=== PATIENT | male | born 1990 | race Two or more races ===

== ENCOUNTER 2016-11-08 09:54 | Emergency (ER) | payer MEDICAID ==
[2016-11-08 10:01] VITALS: TEMP 98.6
--- NOTE | 2016-11-08 10:38 | EDPHY ---
H & P Stated Complaint: Jaw inj 2010;recurrent abcess?also vision bothering him for weeks Time Seen by Provider: 11/08/16 10:08 HPI/ROS: CHIEF COMPLAINT: Drainage in tenderness submental region HISTORY OF PRESENT ILLNESS: 26-year-old immunocompetent homeless male moved from [place] 2 days ago to [place], complaining of progressive and continued drainage, fluctuance in the submental region for the past several months. He has a history of multiple facial, mandible fracture in 2011 with ORIF. He states that he has had limited evaluation and follow up in [place] due to his homeless status. He denies: Intraoral lesions, change in voice, nuchal rigidity, chest pain, dyspnea, fever, chills, nausea, vomiting. PRIMARY CARE PROVIDER:none REVIEW OF SYSTEMS: A ten point review of systems was performed and is negative with the exception of the items mentioned in the HPI PAST MEDICAL & SURGICAL HISTORY: 2010 multiple facial fractures with ORIF in [place] SOCIAL HISTORY: positive marijuana use. Homeless. PHYSICAL EXAM (Prior to examination, patient consented to physical exam, hands were washed and my usual and customary physical exam procedures followed) 1) GENERAL: Well-developed, well-nourished, alert and oriented. Appears to be in no acute distress. 2) HEAD: Normocephalic, atraumatic 3) HEENT: Pupils equal, round, reactive to light bilaterally. Sclera anicteric. Nasopharynx, oropharynx, clear, no lesions. Floor of mouth soft no evidence of Daniel's angina. Submental region is tender with noted multiple scars with no dehiscence no drainage no fetid odor. Fluctuant in this area with no visible abscess, no erythema. Ears bilaterally with normal tympanic membranes. 4) NECK: Full range of motion, no meningeal signs. 5) LUNGS: Clear auscultation bilaterally, no wheezes, no rhonchi, no retractions. 6) HEART: Regular rate and rhythm, no murmur, no heave, no gallop. 7) ABDOMEN: No guarding, no rebound, no focal tenderness, 8) MUSCULOSKELETAL: No peripheral edema or discoloration. 9) BACK: No CVA tenderness 10) SKIN: No rash, no petechiae. 11) Psychiatric: Patient is oriented X 3, there is no agitation. DIFFERENTIAL DIAGNOSIS: no particular include but not limited to abscess, hardware infection, cellulitis - Personal History Current Tetanus Diphtheria and Acellular Pertussis (TDAP): No - Social History Smoking Status: Current every day smoker Constitutional: Initial Vital Signs Temperature (C) 37 C 11/08/16 09:54 Heart Rate 98 11/08/16 09:54 Respiratory Rate 18 11/08/16 09:54 Blood Pressure 122/82 H 11/08/16 09:54 O2 Sat (%) 96 11/08/16 09:54 O2 Delivery Mode Room Air Allergies/Adverse Reactions: "some medicine I got in 2010" Allergy (Uncoded 11/08/16 10:02) Home Medications: Medication Instructions Recorded NK [No Known Home Meds] 11/08/16 Medical Decision Making - Diagnostics Imaging: CT Facial Bones With Contrast History: Drainage, rule out abscess. History of facial surgeries in [place]. Comparison: None available. Technique: Axial images were obtained through the face following the uneventful intravenous administration of 80 mL Isovue-300 and multiplanar reformations were performed. Dose reduction techniques were utilized. Findings: There is extensive artifact from the patient's dental amalgam, as well as plate and screw fixation of the mandible. There are lucencies associated with multiple screws in the mandible , including to the right of midline (series 2 image 272) as well as to the left of midline in the area of several screws (series 2 image 265). There is no significant periosteal reaction in the region. There appears to be a subtle sinus tract extending from the right submandibular lucency to the skin (series 3 image 145 and coronal series 601 image 48). This measures 2 to 3 mm in maximal transverse diameter, with no significant abscess identified. Plate and screw fixation of the anterior maxillary sinuses is noted bilaterally. The visible brain and orbits are normal. Mild mucous membrane thickening is present in the ethmoid and maxillary sinuses with an equivocal air- fluid level in the right maxillary sinus. The visible mastoid air cells are clear. Old healed mandibular ramus fractures are noted with mild anterior subluxation of the mandible bilaterally of the temporomandibular joints without mae dislocation. Multiple old left facial fractures are present, including an old left zygomatic arch fracture that appears incompletely healed. Scattered mildly prominent cervical lymph nodes are likely reactive. Impression: 1. Apparent sinus tract extending from perihardware lucency in the right mandible to the skin, suspicious for infection with a draining sinus tract, with no appreciable abscess. If previous outside imaging could be made available, I will be happy to issue an addendum. 2. Additional findings as above. Dictated By: Remberto Good MD Images reviewed by myself ED Course/Re-evaluation: 11:54 a.m.: I discussed the imaging results with the patient showing a sinus tract extending to his hardware. Phone consultation with on-call oral surgery Dr Araujo who agrees to see the patient in her office this afternoon. The watch caser has given the patient a taxi voucher to go to her office. Dr. Araujo will write patient prescriptions at his office visit. - Data Points Laboratory Results: Laboratory Results 11/08/16 10:25 11/08/16 10:25 11/08/16 11/08/16 11/08/16 10:25 10:25 10:23 WBC 7.67 10^3/uL 10^3/uL (3.80-9.50) RBC 4.95 10^6/uL 10^6/uL (4.40-6.38) Hgb 14.6 g/dL g/dL (13.7-17.5) POC Hgb 15.3 gm/dL gm/dL (14.5-17.3) Hct 43.1 % % (40.0-51.0) POC Hct 45 % % (42.8-50.6) MCV 87.1 fL fL (81.5-99.8) MCH 29.5 pg pg (27.9-34.1) MCHC 33.9 g/dL g/dL (32.4-36.7) RDW 13.1 % % (11.5-15.2) Plt Count 265 10^3/uL 10^3/uL (150-400) MPV 11.3 fL fL (8.7-11.7) Neut % (Auto) 68.3 % % (39.3-74.2) Lymph % (Auto) 20.3 % % (15.0-45.0) [place] % (Auto) 7.7 % % (4.5-13.0) Eos % (Auto) 2.1 % % (0.6-7.6) Baso % (Auto) 1.2 % % (0.3-1.7) Nucleat RBC Rel Count 0.0 % % (0.0-0.2) Absolute Neuts (auto) 5.24 10^3/uL 10^3/uL (1.70-6.50) Absolute Lymphs (auto) 1.56 10^3/uL 10^3/uL (1.00-3.00) Absolute Monos (auto) 0.59 10^3/uL 10^3/uL (0.30-0.80) Absolute Eos (auto) 0.16 10^3/uL 10^3/uL (0.03-0.40) Absolute Basos (auto) 0.09 10^3/uL 10^3/uL (0.02-0.10) Absolute Nucleated RBC 0.00 10^3/uL 10^3/uL (0-0.01) Immature Gran % 0.4 % % (0.0-1.1) Immature Gran # 0.03 10^3/uL 10^3/uL (0.00-0.10) POC Sodium 142 mEq/L mEq/L (134-144) Sodium 141 mEq/L mEq/L (134-144) POC Potassium 3.8 mEq/L mEq/L (3.3-5.0) Potassium 4.2 mEq/L mEq/L (3.5-5.2) POC Chloride 100 mEq/L mEq/L (96-108) Chloride 102 mEq/L mEq/L (97-110) Carbon Dioxide 28 mEq/l mEq/l (22-31) Anion Gap 11 mEq/L mEq/L (8-16) POC BUN 17 mg/dL mg/dL (7-23) BUN 17 mg/dL mg/dL (7-23) Creatinine 0.8 mg/dL mg/dL (0.7-1.3) POC Creatinine 0.8 mg/dL mg/dL (0.8-1.5) Estimated GFR > 60 Glucose 99 mg/dL mg/dL (70-100) POC Glucose 103 mg/dL H mg/dL (70-100) Calcium 9.4 mg/dL mg/dL (8.5-10.4) Point of Care Test Results: 11/08/16 10:23 POC Sodium 142 POC Potassium 3.8 POC Chloride 100 POC BUN 17 POC Creatinine 0.8 POC Glucose 103 H Departure - Departure Disposition: Home, Routine, Self-Care Clinical Impression: Orofacial sinus tract Condition: Good Instructions: Facial Fracture (ED) Referrals: Srinivas Araujo [Medical Doctor] - 11/08/16 1:00 pm (Dr Araujo is expecting you in the office before 2 pm. Please keep this appoinmtent.)
[2016-11-08] MEDS ORDERED: IOPAMIDOL (ISOVUE-300) 100 ML BTL IV ONE (10:39)
[2016-11-08 10:41] LABS: % IMMATURE GRANULYOCYTES 0.4 % (0.0-1.1); ABSOLUTE IMMATURE GRANULOCYTES 0.03 10^3/uL (0.00-0.10); ADD DIFF? NO; ADD MORPH? NO; ADD SCAN? NO; ATYPICAL LYMPHOCYTE FLAG 80 (0-99); FRAGMENT RBC FLAG 0 (0-99); HEMATOCRIT 43.1 % (40.0-51.0); HEMOGLOBIN 14.6 g/dL (13.7-17.5); LEFT SHIFT FLG 0 (0-99); LIPEMIA HEMOLYSIS FLAG 90 (0-99); MEAN CELL HEMOGLOBIN 29.5 pg (27.9-34.1); MEAN CELL HEMOGLOBIN CONCENTR. 33.9 g/dL (32.4-36.7); MEAN CELL VOLUME 87.1 fL (81.5-99.8); MEAN PLATELET VOLUME 11.3 fL (8.7-11.7); PLATELET CLUMPS FLAG 0 (0-99); PLATELET COUNT 265 10^3/uL (150-400); RED BLOOD CELL COUNT 4.95 10^6/uL (4.40-6.38); RED CELL DISTRIBUTION WIDTH 13.1 % (11.5-15.2)
[2016-11-08 11:05] LABS: ANION GAP 11 mEq/L (8-16); CALCIUM 9.4 mg/dL (8.5-10.4); CARBON DIOXIDE 28 mEq/l (22-31); CHLORIDE 102 mEq/L (97-110); CREATININE 0.8 mg/dL (0.7-1.3); GLOMERULAR FILTRATION RATE > 60; GLUCOSE 99 mg/dL (70-100); POTASSIUM 4.2 mEq/L (3.5-5.2); SODIUM 141 mEq/L (134-144)
[2016-11-08 12:17] VITALS: BP 134/83; PULSE 97; RESP 16; O2SAT 95
== END 2016-11-08 12:17 | disposition home or self-care (01) ==
DX: R51 Headache (principal); F17.200 Nicotine dependence, unspecified, uncomplicated
CPT/HCPCS: 82947-QW; Q9967